=== PATIENT | female | born 1965 | race Caucasian/White ===

== ENCOUNTER 2025-03-22 14:55 | Emergency (ER) | payer MEDICAID, SELFPAY ==
--- NOTE | 2025-03-22 | XR_ITS ---
Examination: PA lateral chest 2 views TECHNIQUE: Upright PA and lateral chest 2 views Exam date and time: 06/22/2025 1617 hours INDICATIONS: Shortness of breath today. FINDINGS: Normal heart size. No pneumonia or pulmonary edema. Moderate osteopenia IMPRESSION: No pneumonia or pulmonary edema
[2025-03-22] MEDS: KETOROLAC INJ 60 MG/2 ML VIAL 30 MG IM (18:13)
[2025-03-22] MEDS: DIAZEPAM 5 MG TABLET PO (18:13)
[2025-03-22 18:15] VITALS: BP 130/82; PULSE 75; RESP 18; TEMP 36.7; O2SAT 97
== END 2025-03-22 18:20 | disposition home or self-care (01) ==
PROVIDERS: Emergency Provider Emergency Medicine
DX: S39.012A Strain of muscle, fascia and tendon of lower back, initial encounter (principal); M94.0 Chondrocostal junction syndrome [Tietze]; X58.XXXA Exposure to other specified factors, initial encounter; Y93.B1 Activity, exercise machines primarily for muscle strengthening; Y92.39 Other specified sports and athletic area as the place of occurrence of the external cause
CPT/HCPCS: 71046; 96372; 99283; J1885; A9270

== ENCOUNTER → 2025-07-16 | Outpatient (CLI) | payer MEDICAID, SELFPAY ==
--- NOTE | 2025-07-16 14:30 | XR_ITS ---
Examination: Screening digital mammography, bilateral Computer aided detection 3-D breast Tomosynthesis, bilateral Date and time of exam: July 16, 2025 1413 hours Compared to mammograms dating to October 11, 2018 Indication: Screening Technique: Nonmagnified MLO, CC views of the breasts to been obtained, reconstructed from 3-D Tomosynthesis images. R2 computer aided detection program utilized for evaluation of suspicious masses and/or abnormal calcifications. 3-D Tomosynthesis images obtained. Findings: Scattered areas of fibroglandular density Large focus suspicious microcalcifications 3:00 position left breast Impression: BI-RADS Category 0: Incomplete: Need additional imaging evaluation Recommend follow-up spot magnification views of suspicious microcalcifications 3 o'clock position left breast as well as bilateral breast sonography to complete the workup
== END | disposition home or self-care (01) ==
PROVIDERS: PCP Student in an Organized Health Care Education/Training Program; Referring Provider Student in an Organized Health Care Education/Training Program; Visit Provider Student in an Organized Health Care Education/Training Program
DX: Z12.31 Encounter for screening mammogram for malignant neoplasm of breast (principal); R92.0 Mammographic microcalcification found on diagnostic imaging of breast
CPT/HCPCS: 77063; 77067

== ENCOUNTER → 2025-08-26 | Outpatient (CLI) | payer MEDICAID, SELFPAY ==
--- NOTE | 2025-08-26 12:30 | XR_ITS ---
Examination: Breast ultrasound complete, bilateral Date and time of exam: August 26, 2025, 1322 hours INDICATIONS: BI-RADS 4 suspicious suspicious microcalcifications left breast upper outer quadrant on mammogram today Technique: Real-time grayscale ultrasonographic imaging bilateral breasts, including all 4 quadrants as well as nipple retroareolar and axillary regions. Findings: Sonographic images right breast No cystic or solid mass Sonographic images left breast 3:00 cyst 5 x 4 mm Retroareolar cyst 7 x 3 mm No solid nodules IMPRESSION: BI-RADS Category 2: Benign findings However, please see the BI-RADS 4 suspicious for malignancy report on today's mammogram
--- NOTE | 2025-08-26 13:30 | XR_ITS ---
Examination: Diagnostic digital mammography, unilateral, left Computer aided detection 3-D breast Tomosynthesis, unilateral Date and time of exam: August 26, 2025, 1339 hours INDICATION: Mammogram 07/16/2025 large focus suspicious microcalcifications 3 o'clock position left breast Technique: Nonmagnified MLO, CC views of the left breast have been obtained, reconstructed from 3-D Tomosynthesis images. R2 computer aided detection program utilized for evaluation of suspicious masses and/or abnormal calcifications. 3-D Tomosynthesis images obtained. Findings: Scattered areas of fibroglandular density. Large focus suspicious microcalcifications upper outer quadrant left breast are confirmed Impression: BI-RADS category 4: Suspicious for malignancy Suspicious microcalcifications are confirmed upper outer left breast, biopsy is needed to exclude breast carcinoma, these calcifications are amenable to stereotactic breast biopsy for diagnosis
== END | disposition home or self-care (01) ==
PROVIDERS: PCP Student in an Organized Health Care Education/Training Program; Referring Provider Student in an Organized Health Care Education/Training Program; Visit Provider Student in an Organized Health Care Education/Training Program
DX: R92.342 Mammographic extreme density, left breast (principal); R92.0 Mammographic microcalcification found on diagnostic imaging of breast
CPT/HCPCS: 76641; 77061; 77065; G0279

== ENCOUNTER → 2025-09-23 | Outpatient (CLI) | payer MEDICAID, SELFPAY ==
[2025-09-22 15:40] LABS: Basophils # (Auto) 0.0 Thou/mm3 (0.0-0.2); Basophils % (Auto) 1 % (0-2.5); Eosinophils # (Auto) 0.3 Thou/mm3 (0.0-0.5); Eosinophils % (Auto) 4 % (0-10); Hematocrit 39.2 % (36.0-46.0); Hemoglobin 13.1 g/dL (12.0-16.0); Immature Granulocytes Auto 0.02 Thou/mm3 (0.00-0.00); Lymphocytes # (Auto) 2.0 Thou/mm3 (1.0-4.8); Lymphocytes % (Auto) 31 % (10-50); Mean Corpuscular HGB Conc 33.4 g/dl (31.0-37.0); Mean Corpuscular Hemoglobin 30.2 pg (25.0-35.0); Mean Corpuscular Volume 90 fL (80-100); Monocytes # (Auto) 0.4 Thou/mm3 (0.0-0.8); Monocytes % (Auto) 7 % (0-12); Neutrophils # (Auto) 3.7 Thou/mm3 (1.8-7.7); Neutrophils % (Auto) 57 % (37-80); Nucleated Red Blood Cell # 0.00 Thou/mm3 (0.00-0.00); Nucleated Red Blood Cell % 0 /100 WBC (0); Platelet Count 205 Thou/mm3 (140-440); RDW Standard Deviation 42.6 fL (36.4-46.3); Red Blood Count 4.34 Miln/mm3 (4.00-5.20); White Blood Count 6.5 Thou/mm3 (3.6-11.0)
[2025-09-22 15:49] LABS: INR 0.9 (0.9-1.3); Partial Thromboplastin Time 26.2 Seconds (22.0-36.0); Prothrombin Time 10.0 Seconds (9.0-12.2)
--- NOTE | 2025-09-23 09:00 | XR_ITS ---
Examination: Stereotactic guided vacuum assisted left breast biopsy with clip placement Specimen radiograph Date and time of exam: September 23, 2025, 1027 hours INDICATIONS: Mammogram August 26, 2025 BI-RADS 4 suspicious microcalcifications upper outer left breast Timeout performed, documenting correct patient, order, referring physician, patient's site and reason for procedure, allergies to medications Informed consent provided. Time out performed Technique: The lesion left breast was localized with a stereotactic apparatus. Local anesthesia was obtained after prepping the skin at the entrance site and applying sterile drape Maximum sterile barrier technique. 5 core biopsies were then obtained, vacuum assisted, stereotactically guided, at the lesion site. Specimens appear adequate. Stereotactic breast marker was introduced at the lesion site Estimated blood loss 2 cc. Patient tolerated the procedure well and appeared in satisfactory and stable condition at completion of the procedure Pathology report to follow Impression: Successful stereotactic breast biopsy as described above. Specimen radiograph contains the biopsied suspicious microcalcifications.
== END | disposition home or self-care (01) ==
LOC: CDIM 09:38 → SIRX 09-30 10:09
PROVIDERS: Radiology Diagnostic Radiology; PCP Student in an Organized Health Care Education/Training Program; Referring Provider Student in an Organized Health Care Education/Training Program; Visit Provider Student in an Organized Health Care Education/Training Program
DX: C50.912 Malignant neoplasm of unspecified site of left female breast (principal); Z17.1 Estrogen receptor negative status [ER-]; Z17.22 Progesterone receptor negative status
CPT/HCPCS: 36415; 85025; 85610; 85730; A4648; A4649

== ENCOUNTER → 2025-11-02 | Outpatient (CLI) | payer MEDICAID, SELFPAY ==
[2025-10-28 11:33] LABS: Albumin, Serum 4.2 gm/dL (3.5-5.0); Anion Gap 8 (7-16); BUN/Creatinine Ratio 18 Ratio (12-20); Blood Urea Nitrogen 14 mg/dL (9-23); Calcium 9.3 mg/dL (8.3-10.6); Calcium (Corrected) 9.3 mg/dL (8.5-10.1); Carbon Dioxide 28.1 mMol/L (20.0-31.0); Chloride 107 mMol/L (98-107); Creatinine (Component) 0.8 mg/dL (0.6-1.3); Glucose 153 mg/dL (74-106); Osmolality,Calculated 288 (275-295); Phosphorous 4.3 mg/dL (2.4-5.1); Potassium 4.5 mMol/L (3.4-5.1); Sodium 143 mMol/L (136-145); eGFR > 60 See Note
--- NOTE | 2025-11-02 14:30 | XR_ITS ---
EXAMINATION: MRI breast bilateral without intravenous contrast MRI breast bilateral with intravenous contrast Date and time: November 02, 2025, 1639 hours INDICATIONS: Diagnosis intraductal carcinoma in situ left breast, screening mammogram August 26, 2025 suspicious microcalcifications upper outer left breast, positive biopsy September 23, 2025 TECHNIQUE AND FINDINGS: Bilateral breast MRI images pre and post 15 cc gadolinium Scattered areas of fibroglandular density 6.2 x 5.4 cm abnormal area of increased signal in the outer left breast corresponding to the large focus of abnormal calcifications, biopsy positive for carcinoma in the upper outer left breast No chest wall mass No pathologic lymphadenopathy Addendum will be made to this report when the [employer] software is available for interpretation IMPRESSION: BI-RADS Category 5, known malignancy in the entire outer left breast, 3 o'clock position, at least 6.2 x 5.4 cm in dimension left breast No chest wall mass No axillary lymphadenopathy
== END | disposition home or self-care (01) ==
PROVIDERS: PCP Student in an Organized Health Care Education/Training Program
DX: D05.12 Intraductal carcinoma in situ of left breast (principal); E11.65 Type 2 diabetes mellitus with hyperglycemia
CPT/HCPCS: 36415; 77049; 80069; A9577; C8908